=== PATIENT | male | born 1940 | race Caucasian/White ===

== ENCOUNTER 2016-08-05 07:07 | Inpatient (IN) | payer OTHER ==
[~2016-08-05] VITALS: Ht 177.8 cm; Wt 129.2 kg
[2016-08-05] VITALS (20 sets, daily range): BP systolic 99–154; BP diastolic 41–74
[~2016-08-05 07:07] MED LIST: ASPIRIN81 M1 PO; ATIVAN0.5 MG PO; DIOVAN160 MG PO; EFFEXOR37.5 MG PO; LISINOPRIL10 MG PO; LISINOPRIL20 MG PO; LOPRESSOR25 MG PO; LOPRESSOR50 MG PO; METOPROLOL TART25 MG PO; NIASPAN,SLO-N1000 MG PO; NIFEDIPINE10 MG PO; Norvasc PO; SIMVASTATIN10 MG PO; SIMVASTATIN40 MG PO; [UNRECOGNIZED DRUG - OTHER] PO; risperDAL PO
[2016-08-05 08:24] LABS: BASE EXCESS -6.4 mEq/L (-3 to +3); BICARBONATE 18.1 mEq/L (22-26); CARBOXY HGB 1.8 % (0-5); COMMENTS - BLOOD GASES A+C+; DEVICE NRB; FI02 100 %; METHEMOGLOBIN 1.1 % (0-1.5); PCO2 32 mm Hg (35-45); PO2 74 mm Hg (80-100); SITE RR; TOTAL RESP RATE 40 resp/min; pH 7.36 (7.35-7.45)
[2016-08-05 08:34] LABS: EOSINOPHIL (%) 0.1 % (0-5); HEMATOCRIT 36.7 % (38.0-50.0); IMMATURE GRANULOCYTE (%) 0.6 % (0.0-0.7); IMMATURE GRANULOCYTE COUNT 0.6 K/uL; LYMPHOCYTE COUNT 1.8 K/uL (1.0-2.8); MCH 31.4 PG (29.0-34.0); MCHC 33.8 G/DL (30.0-36.0); MCV 92.9 FL (86-99); MEAN PLAT.VOLUME 9.4 uM^3 (9.0-12.4); MONOCYTE (%) 9.8 % (3-12); MONOCYTE COUNT 1.1 K/uL (0-0.8); NEUTROPHIL (%) 73.1 % (45-76); NEUTROPHIL COUNT 7.8 K/uL (1.8-6.4); PLATELET COUNT 324 K/uL (156-360); RBC DIS.WIDTH-CV 13.6 % (11.8-14.6); RED BLOOD COUNT 3.95 M/uL (4.00-5.50); WHITE BLOOD COUNT 10.7 K/uL (4.1-10.2)
[2016-08-05 09:05] LABS: ANION GAP 18 MEQ/L (2-14); CHLORIDE 105 MEQ/L (99-109); POTASSIUM 3.7 MEQ/L (3.7-5.4); SAMPLE HEMOLYSIS CHECK 0; SAMPLE ICTERIC CHECK 0; SAMPLE LIPEMIA CHECK 0; SODIUM 142 MEQ/L (136-147); TOTAL BILIRUBIN 0.5 MG/DL (0.0-1.0)
[2016-08-05 09:11] LABS: ALKALINE PHOSPHATASE 53 IU/L (3-129); GFR ESTIMATE (CALCULATED) 11 mL/min/; GLUCOSE 159 mg/dL (70-99); UREA NITROGEN (BUN) 78 mg/dL (9-23)
[2016-08-05 10:39] LABS: ADD MIUA? YES; BILIRUBIN MODERATE; BLOOD SMALL; COLOR AMBER ((YELLOW)); GLUCOSE (STRIP) NEGATIVE; KETONES TRACE; LEUKOCYTES SMALL; NITRITE NEGATIVE; PROTEIN (STRIP) 30; SPECIFIC GRAVITY 1.028 (1.000-1.030); UROBILINOGEN 0.2 MG/DL (0.2-1.0)
[2016-08-05 10:57] LABS: ICTOTEST NEGATIVE
[2016-08-05 11:02] LABS: EPITHELIAL CELLS RARE
[2016-08-05 11:03] LABS: BACTERIA 1+; CASTS PRESENT /LPF; CRYSTALS NONE SEEN; MUCUS NONE SEEN; RED BLOOD CELLS 15-20 /HPF (0-5); UCUL ADDED? NO
[2016-08-05 11:45] LABS: EOSINOPHIL (%) 0 % (0-5); HEMATOCRIT 35.2 % (38.0-50.0); IMMATURE GRANULOCYTE (%) 0.5 % (0.0-0.7); IMMATURE GRANULOCYTE COUNT 0.5 K/uL; LYMPHOCYTE COUNT 1.4 K/uL (1.0-2.8); MCH 30.9 PG (29.0-34.0); MCV 93.6 FL (86-99); MEAN PLAT.VOLUME 9.2 uM^3 (9.0-12.4); MONOCYTE (%) 12.6 % (3-12); MONOCYTE COUNT 1.3 K/uL (0-0.8); NEUTROPHIL (%) 73.1 % (45-76); NEUTROPHIL COUNT 7.7 K/uL (1.8-6.4); PLATELET COUNT 301 K/uL (156-360); RBC DIS.WIDTH-CV 13.7 % (11.8-14.6); RBC DIS.WIDTH-SD 45.1 % (39-53); RED BLOOD COUNT 3.76 M/uL (4.00-5.50); WHITE BLOOD COUNT 10.5 K/uL (4.1-10.2)
[2016-08-05] MEDS ORDERED: ZOCOR20 MG PO (12:48)
[2016-08-05] MEDS ORDERED: LOPRESSOR100 M1 PO (12:49)
[2016-08-05] MEDS ORDERED: EFFEXOR XR75 MG PO (12:50)
[2016-08-05] MEDS ORDERED: PROPYLTHIOURACI50 MG PO (12:51)
[2016-08-05] MEDS ORDERED: SINEMET 25-1001 EACH PO (12:52)
[2016-08-05] MEDS ORDERED: DICLOFENAC SODI75 MG PO (12:52)
[2016-08-05] MEDS ORDERED: MIRAPEX0.5 MG PO (12:52)
[2016-08-05] MEDS ORDERED: NEURONTIN300 MG PO (12:53)
[2016-08-05] MEDS ORDERED: BENICAR HCT 201 EACH PO (12:53)
[2016-08-05] MEDS ORDERED: KLONOPIN0.5 M1 PO (12:53)
[2016-08-05] MEDS ORDERED: GEODON40 MG PO (12:54)
[2016-08-05] MEDS ORDERED: ESOMEPRAZOLE MA40 MG PO (12:54)
[2016-08-05] MEDS ORDERED: BUSPAR10 MG PO (12:54)
[2016-08-05] MEDS ORDERED: DICYCLOMINE HCL20 MG PO (12:55)
[2016-08-05] MEDS ORDERED: FLEXERIL10 MG PO (12:55)
[2016-08-05 16:42] LABS: MAGNESIUM 2.4 mg/dl (1.3-2.7)
[2016-08-05 17:08] LABS: METH RESISTANT S AUREUS PCR NEGATIVE (NEGATIVE)
[2016-08-05 17:13] LABS: PROBE CHECK PASS; SPECIMEN PROCESSING CONTROL PASS
[2016-08-05 18:06] LABS: POINT-OF-CARE METER ID UU14162636
[2016-08-05 18:12] LABS: ANION GAP 14 MEQ/L (2-14); CHLORIDE 111 MEQ/L (99-109); GFR ESTIMATE (CALCULATED) 12 mL/min/; GLUCOSE 131 mg/dL (70-99); SAMPLE HEMOLYSIS CHECK 0; SAMPLE ICTERIC CHECK 0; SAMPLE LIPEMIA CHECK 0; SODIUM 144 MEQ/L (136-147); UREA NITROGEN (BUN) 84 mg/dL (9-23)
[2016-08-05 19:38] LABS: UR CREATININE CONCENTRATION 442.8 MG/DL
[2016-08-06] VITALS (23 sets, daily range): BP systolic 106–179; BP diastolic 42–143
[2016-08-06 00:55] LABS: POINT-OF-CARE METER ID UU13113731
[2016-08-06 06:05] LABS: ANION GAP 17 MEQ/L (2-14); CHLORIDE 113 MEQ/L (99-109); GLUCOSE 109 mg/dL (70-99); POTASSIUM 3.6 MEQ/L (3.7-5.4); SAMPLE HEMOLYSIS CHECK 0; SAMPLE ICTERIC CHECK 0; SAMPLE LIPEMIA CHECK 0; SODIUM 147 MEQ/L (136-147); UREA NITROGEN (BUN) 74 mg/dL (9-23)
[2016-08-06 06:07] LABS: GFR ESTIMATE (CALCULATED) 21 mL/min/; MAGNESIUM 1.9 mg/dl (1.3-2.7)
[2016-08-06 06:23] LABS: EOSINOPHIL (%) 0 % (0-5); HEMATOCRIT 33.9 % (38.0-50.0); IMMATURE GRANULOCYTE (%) 0.6 % (0.0-0.7); LYMPHOCYTE COUNT 1.3 K/uL (1.0-2.8); MCH 30.7 PG (29.0-34.0); MCHC 32.4 G/DL (30.0-36.0); MCV 94.7 FL (86-99); MEAN PLAT.VOLUME 9.6 uM^3 (9.0-12.4); MONOCYTE (%) 18.1 % (3-12); MONOCYTE COUNT 0.9 K/uL (0-0.8); NEUTROPHIL (%) 53.9 % (45-76); NEUTROPHIL COUNT 2.6 K/uL (1.8-6.4); PLATELET COUNT 241 K/uL (156-360); RED BLOOD COUNT 3.58 M/uL (4.00-5.50)
[2016-08-06 06:29] LABS: WHITE BLOOD COUNT 4.9 K/uL (4.1-10.2)
[2016-08-06 07:39] LABS: HEMATOLOGY COMMENT 1 SMEAR COMPATIBLE; USER ID SDF
[2016-08-06 12:56] LABS: POINT-OF-CARE METER ID UU13113731
[2016-08-06 20:23] LABS: BASE EXCESS -3.9 mEq/L (-3 to +3); BICARBONATE 21.6 mEq/L (22-26); CARBOXY HGB 1.7 % (0-5); PO2 73 mm Hg (80-100); pH 7.34 (7.35-7.45)
[2016-08-06 20:24] LABS: COMMENTS - BLOOD GASES A+C+; DEVICE 840; FI02 50 %; MECHANICAL RATE 12 resp/min; MODE A/C; PCO2 40 mm Hg (35-45); PEEP 5 CM/H20; SITE RR; TIDAL VOLUME 350 ML
[2016-08-07] VITALS (24 sets, daily range): BP systolic 85–172; BP diastolic 35–79
[2016-08-07 00:59] LABS: POINT-OF-CARE METER ID UU13113731
[2016-08-07 05:29] LABS: POINT-OF-CARE METER ID UU13113803
[2016-08-07 05:53] LABS: HEMATOCRIT 27.5 % (38.0-50.0); MCH 30.8 PG (29.0-34.0); MCHC 32.7 G/DL (30.0-36.0); MCV 94.2 FL (86-99); MEAN PLAT.VOLUME 9.1 uM^3 (9.0-12.4); PLATELET COUNT 206 K/uL (156-360); RBC DIS.WIDTH-CV 14.4 % (11.8-14.6); RBC DIS.WIDTH-SD 49.5 % (39-53); RED BLOOD COUNT 2.92 M/uL (4.00-5.50); WHITE BLOOD COUNT 5.6 K/uL (4.1-10.2)
[2016-08-07 06:24] LABS: ANION GAP 13 MEQ/L (2-14); CHLORIDE 110 MEQ/L (99-109); GLUCOSE 111 mg/dL (70-99); MAGNESIUM 1.9 mg/dl (1.3-2.7); POTASSIUM 3.4 MEQ/L (3.7-5.4); SAMPLE HEMOLYSIS CHECK 0; SAMPLE ICTERIC CHECK 0; SAMPLE LIPEMIA CHECK 0; SODIUM 144 MEQ/L (136-147); UREA NITROGEN (BUN) 46 mg/dL (9-23)
[2016-08-07 06:28] LABS: GFR ESTIMATE (CALCULATED) 35 mL/min/
[2016-08-07 06:51] LABS: EOSINOPHIL (%) 1.3 % (0-5); EOSINOPHIL COUNT 0.1 K/uL (0-0.3); HEMATOLOGY COMMENT 1 SMEAR COMPATIBLE; IMMATURE GRANULOCYTE COUNT 0.1 K/uL; MONOCYTE (%) 18.8 % (3-12); MONOCYTE COUNT 1.1 K/uL (0-0.8); NEUTROPHIL (%) 59.2 % (45-76); NEUTROPHIL COUNT 3.3 K/uL (1.8-6.4); USER ID SDF
[2016-08-07 11:09] LABS: HEMATOCRIT 31.1 % (38.0-50.0); MCV 95.4 FL (86-99)
[2016-08-07 11:37] LABS: POINT-OF-CARE METER ID UU13113803
[2016-08-07 17:53] LABS: POINT-OF-CARE METER ID UU13113803
[2016-08-07 18:30] LABS: MCV 94.3 FL (86-99)
[2016-08-08] VITALS (26 sets, daily range): BP systolic 71–190; BP diastolic 33–105
[2016-08-08 00:49] LABS: POINT-OF-CARE METER ID UU13113803
[2016-08-08 00:52] LABS: HEMATOCRIT 28.9 % (38.0-50.0); MCV 93.5 FL (86-99)
[2016-08-08 06:16] LABS: ANION GAP 10 MEQ/L (2-14); CHLORIDE 108 MEQ/L (99-109); GFR ESTIMATE (CALCULATED) 53 mL/min/; GLUCOSE 119 mg/dL (70-99); MAGNESIUM 2.1 mg/dl (1.3-2.7); POTASSIUM 3.5 MEQ/L (3.7-5.4); SAMPLE HEMOLYSIS CHECK 1; SAMPLE ICTERIC CHECK 0; SAMPLE LIPEMIA CHECK 0; SODIUM 140 MEQ/L (136-147); UREA NITROGEN (BUN) 39 mg/dL (9-23)
[2016-08-08 06:27] LABS: EOSINOPHIL (%) 2.2 % (0-5); EOSINOPHIL COUNT 0.2 K/uL (0-0.3); HEMATOCRIT 25.6 % (38.0-50.0); IMMATURE GRANULOCYTE (%) 2.3 % (0.0-0.7); IMMATURE GRANULOCYTE COUNT 0.2 K/uL; LYMPHOCYTE COUNT 1.1 K/uL (1.0-2.8); MCHC 33.2 G/DL (30.0-36.0); MCV 93.4 FL (86-99); MEAN PLAT.VOLUME 9.6 uM^3 (9.0-12.4); MONOCYTE (%) 6.8 % (3-12); MONOCYTE COUNT 0.5 K/uL (0-0.8); NEUTROPHIL (%) 74.3 % (45-76); NEUTROPHIL COUNT 5.8 K/uL (1.8-6.4); PLATELET COUNT 211 K/uL (156-360); RBC DIS.WIDTH-CV 14.5 % (11.8-14.6); RBC DIS.WIDTH-SD 49.5 % (39-53); RED BLOOD COUNT 2.74 M/uL (4.00-5.50)
[2016-08-08 06:29] LABS: WHITE BLOOD COUNT 7.8 K/uL (4.1-10.2)
[2016-08-08 07:40] LABS: HEMATOLOGY COMMENT 1 SMEAR COMPATIBLE; USER ID CCL
[2016-08-09] VITALS (33 sets, daily range): BP systolic 79–229; BP diastolic 35–116
[2016-08-09 00:34] LABS: CHLORIDE 111 mEq/L (99-109); SODIUM 143 mEq/L (136-147)
[2016-08-09 00:36] LABS: GLUCOSE 101 mg/dL (70-99)
[2016-08-09 00:37] LABS: ANION GAP 16 MEQ/L (2-14); POTASSIUM 4.8 mEq/L (3.7-5.4)
[2016-08-09 00:40] LABS: GFR ESTIMATE (CALCULATED) 37 mL/min/; UREA NITROGEN (BUN) 42 mg/dL (9-23)
[2016-08-09 01:40] LABS: BASE EXCESS -2.6 mEq/L (-3 to +3); BICARBONATE 20.4 mEq/L (22-26); METHEMOGLOBIN 1.6 % (0-1.5)
[2016-08-09 01:41] LABS: COMMENTS - BLOOD GASES C+A+; DEVICE VENTILATOR; FI02 80 %; INSPIRATION TIME 0.75 seconds; MECHANICAL RATE 12 resp/min; MODE AC; PCO2 28 mm Hg (35-45); PEEP 10 CM/H20; PO2 125 mm Hg (80-100); SITE LR; TIDAL VOLUME 450 ML; TOTAL RESP RATE 54 resp/min; pH 7.47 (7.35-7.45)
[2016-08-09 04:38] LABS: CHLORIDE 108 mEq/L (99-109); SODIUM 145 mEq/L (136-147)
[2016-08-09 04:39] LABS: MAGNESIUM 1.9 mg/dL (1.3-2.7)
[2016-08-09 04:40] LABS: GLUCOSE 77 mg/dL (70-99)
[2016-08-09 04:42] LABS: ANION GAP 20 MEQ/L (2-14)
[2016-08-09 04:44] LABS: GFR ESTIMATE (CALCULATED) 37 mL/min/
[2016-08-09 04:45] LABS: UREA NITROGEN (BUN) 43 mg/dL (9-23)
[2016-08-09 05:09] LABS: TROP-I INTERPRETATION NEGATIVE; TROPONIN-I 0.16 ng/mL (0.0-0.30)
[2016-08-09 05:28] LABS: BASOPHIL COUNT 0.1 K/uL (0-0.1); EOSINOPHIL (%) 0.9 % (0-5); EOSINOPHIL COUNT 0.2 K/uL (0-0.3); HEMATOCRIT 26.7 % (38.0-50.0); IMMATURE GRANULOCYTE (%) 2.9 % (0.0-0.7); IMMATURE GRANULOCYTE COUNT 5.6 K/uL; LYMPHOCYTE COUNT 2.8 K/uL (1.0-2.8); MCH 31.1 PG (29.0-34.0); MCV 94.3 FL (86-99); MEAN PLAT.VOLUME 9.5 uM^3 (9.0-12.4); MONOCYTE (%) 7.3 % (3-12); MONOCYTE COUNT 1.4 K/uL (0-0.8); NEUTROPHIL (%) 74.4 % (45-76); NEUTROPHIL COUNT 14.6 K/uL (1.8-6.4); RBC DIS.WIDTH-CV 14.6 % (11.8-14.6); RBC DIS.WIDTH-SD 47.8 % (39-53); RED BLOOD COUNT 2.83 M/uL (4.00-5.50)
[2016-08-09 06:03] LABS: PLATELET COUNT 320 K/uL (156-360); WHITE BLOOD COUNT 19.6 K/uL (4.1-10.2)
[2016-08-09 06:25] LABS: POINT-OF-CARE METER ID UU13113731
[2016-08-09 10:52] LABS: HEMATOLOGY COMMENT 1 SMEAR COMPATIBLE; PLAT.SUFFICIENCY ADEQUATE; USER ID WCD
[2016-08-09 17:49] LABS: POINT-OF-CARE METER ID UU13113748
[2016-08-10] VITALS (24 sets, daily range): BP systolic 95–184; BP diastolic 39–74
[2016-08-10 00:39] LABS: POINT-OF-CARE METER ID UU13113731; POINT-OF-CARE USER ID LABHNS84
[2016-08-10 05:43] LABS: POINT-OF-CARE METER ID UU14174217
[2016-08-10 06:23] LABS: HEMATOCRIT 24.4 % (38.0-50.0); MCH 30.7 PG (29.0-34.0); MCHC 32.4 G/DL (30.0-36.0); MCV 94.9 FL (86-99); PLATELET COUNT 234 K/uL (156-360); RBC DIS.WIDTH-CV 15.3 % (11.8-14.6); RBC DIS.WIDTH-SD 52.7 % (39-53); RED BLOOD COUNT 2.57 M/uL (4.00-5.50)
[2016-08-10 06:24] LABS: WHITE BLOOD COUNT 11.5 K/uL (4.1-10.2)
[2016-08-10 06:26] LABS: ANION GAP 19 MEQ/L (2-14); CHLORIDE 107 MEQ/L (99-109); GFR ESTIMATE (CALCULATED) 42 mL/min/; GLUCOSE 84 mg/dL (70-99); MAGNESIUM 2.1 mg/dl (1.3-2.7); POTASSIUM 3.2 MEQ/L (3.7-5.4); SAMPLE HEMOLYSIS CHECK 0; SAMPLE ICTERIC CHECK 0; SAMPLE LIPEMIA CHECK 1; SODIUM 143 MEQ/L (136-147); UREA NITROGEN (BUN) 42 mg/dL (9-23)
[2016-08-10 07:04] LABS: EOSINOPHIL (%) 2.2 % (0-5); EOSINOPHIL COUNT 0.3 K/uL (0-0.3); HEMATOLOGY COMMENT 1 SMEAR COMPATIBLE; IMMATURE GRANULOCYTE (%) 2.4 % (0.0-0.7); IMMATURE GRANULOCYTE COUNT 0.3 K/uL; LYMPHOCYTE COUNT 1.1 K/uL (1.0-2.8); MONOCYTE (%) 4.5 % (3-12); MONOCYTE COUNT 0.5 K/uL (0-0.8); NEUTROPHIL (%) 81.1 % (45-76); NEUTROPHIL COUNT 9.3 K/uL (1.8-6.4); USER ID CL
[2016-08-10 11:51] LABS: POINT-OF-CARE METER ID UU14174217
[2016-08-10 17:08] LABS: POINT-OF-CARE METER ID UU14174217
[2016-08-11] VITALS (25 sets, daily range): BP systolic 105–201; BP diastolic 50–92
[2016-08-11 00:30] LABS: POINT-OF-CARE METER ID UU14174217
[2016-08-11 05:45] LABS: HEMATOCRIT 23.4 % (38.0-50.0); MCH 31.1 PG (29.0-34.0); MCHC 33.3 G/DL (30.0-36.0); MCV 93.2 FL (86-99); MEAN PLAT.VOLUME 9.6 uM^3 (9.0-12.4); PLATELET COUNT 281 K/uL (156-360); RBC DIS.WIDTH-CV 15.3 % (11.8-14.6); RBC DIS.WIDTH-SD 52.2 % (39-53); RED BLOOD COUNT 2.51 M/uL (4.00-5.50); WHITE BLOOD COUNT 9.8 K/uL (4.1-10.2)
[2016-08-11 06:08] LABS: POINT-OF-CARE METER ID UU14174217
[2016-08-11 06:20] LABS: ANION GAP 14 MEQ/L (2-14); CHLORIDE 105 MEQ/L (99-109); GFR ESTIMATE (CALCULATED) 57 mL/min/; GLUCOSE 104 mg/dL (70-99); MAGNESIUM 1.8 mg/dl (1.3-2.7); POTASSIUM 3.4 MEQ/L (3.7-5.4); SAMPLE HEMOLYSIS CHECK 0; SAMPLE ICTERIC CHECK 0; SAMPLE LIPEMIA CHECK 1; SODIUM 142 MEQ/L (136-147); UREA NITROGEN (BUN) 38 mg/dL (9-23)
[2016-08-11 09:11] LABS: ABS NEUTROPHIL COUNT 8.99; ANISOCYTOSIS 1+; EOSINOPHIL (%) 1.9 % (0-5); EOSINOPHIL COUNT 0.2 K/uL (0-0.3); IMMATURE GRANULOCYTE (%) 6.2 % (0.0-0.7); IMMATURE GRANULOCYTE COUNT 0.6 K/uL; LYMPHOCYTE COUNT 0.8 K/uL (1.0-2.8); MONOCYTE (%) 6.7 % (3-12); MONOCYTE COUNT 0.7 K/uL (0-0.8); NEUTROPHIL (%) 76.4 % (45-76); NEUTROPHIL COUNT 7.5 K/uL (1.8-6.4); PLAT.SUFFICIENCY ADEQUATE; USER ID MCB
[2016-08-11 10:43] LABS: BASE EXCESS -2.7 mEq/L (-3 to +3); BICARBONATE 20.6 mEq/L (22-26); CARBOXY HGB 1.1 % (0-5); METHEMOGLOBIN 1.6 % (0-1.5); PCO2 29 mm Hg (35-45); pH 7.46 (7.35-7.45)
[2016-08-11 10:44] LABS: COMMENTS - BLOOD GASES C+A-N/A; DEVICE 840 VENTILATOR; FI02 85 %; INSPIRATION TIME 0.75 seconds; MECHANICAL RATE 14 resp/min; MODE AC/VC+; PEEP 12 CM/H20; PO2 86 mm Hg (80-100); SITE LR; TIDAL VOLUME 510 ML; TOTAL RESP RATE 24 resp/min
[2016-08-11 12:01] LABS: ANISOCYTOSIS 1+; PLAT.SUFFICIENCY ADEQUATE
[2016-08-11 12:08] LABS: POINT-OF-CARE METER ID UU14174217
[2016-08-11 17:12] LABS: POINT-OF-CARE METER ID UU13113731
[2016-08-11 19:55] LABS: ALKALINE PHOSPHATASE 55 IU/L (3-129); ANION GAP 16 MEQ/L (2-14); CHLORIDE 104 MEQ/L (99-109); GFR ESTIMATE (CALCULATED) > 59 mL/min/; GLUCOSE 114 mg/dL (70-99); MAGNESIUM 1.8 mg/dl (1.3-2.7); POTASSIUM 3.4 MEQ/L (3.7-5.4); SAMPLE HEMOLYSIS CHECK 0; SAMPLE ICTERIC CHECK 0; SAMPLE LIPEMIA CHECK 1; SODIUM 143 MEQ/L (136-147); TOTAL BILIRUBIN 0.8 MG/DL (0.0-1.0); UREA NITROGEN (BUN) 29 mg/dL (9-23)
[2016-08-12] VITALS (25 sets, daily range): BP systolic 96–166; BP diastolic 40–74
[2016-08-12 00:07] LABS: POINT-OF-CARE METER ID UU13113731
[2016-08-12 06:00] LABS: POINT-OF-CARE METER ID UU13113748
[2016-08-12 06:24] LABS: HEMATOCRIT 24.2 % (38.0-50.0); MCH 30.7 PG (29.0-34.0); MCHC 33.1 G/DL (30.0-36.0); MCV 92.7 FL (86-99); MEAN PLAT.VOLUME 9.9 uM^3 (9.0-12.4); NRBC (%) 0.9 /100 WBC (0-0); PLATELET COUNT 292 K/uL (156-360); RBC DIS.WIDTH-CV 15.3 % (11.8-14.6); RBC DIS.WIDTH-SD 51.3 % (39-53); RED BLOOD COUNT 2.61 M/uL (4.00-5.50); WHITE BLOOD COUNT 8.5 K/uL (4.1-10.2)
[2016-08-12 06:54] LABS: ANION GAP 9 MEQ/L (2-14); CHLORIDE 104 MEQ/L (99-109); GFR ESTIMATE (CALCULATED) > 59 mL/min/; GLUCOSE 152 mg/dL (70-99); MAGNESIUM 1.8 mg/dl (1.3-2.7); POTASSIUM 3.3 MEQ/L (3.7-5.4); SAMPLE HEMOLYSIS CHECK 0; SAMPLE ICTERIC CHECK 0; SAMPLE LIPEMIA CHECK 0; SODIUM 141 MEQ/L (136-147); UREA NITROGEN (BUN) 29 mg/dL (9-23)
[2016-08-12 08:13] LABS: ABS NEUTROPHIL COUNT 8.02; EOSINOPHIL (%) 3.6 % (0-5); EOSINOPHIL ABS CT 0.09; EOSINOPHIL COUNT 0.3 K/uL (0-0.3); IMMATURE GRANULOCYTE (%) 6.9 % (0.0-0.7); IMMATURE GRANULOCYTE COUNT 0.6 K/uL; LYMPHOCYTE COUNT 0.9 K/uL (1.0-2.8); MONOCYTE (%) 7.6 % (3-12); MONOCYTE COUNT 0.7 K/uL (0-0.8); NEUTROPHIL (%) 71.4 % (45-76); NEUTROPHIL COUNT 6.1 K/uL (1.8-6.4)
[2016-08-12 13:43] LABS: POINT-OF-CARE METER ID UU13113748
[2016-08-12 18:27] LABS: POINT-OF-CARE METER ID UU13113748
[2016-08-12 23:38] LABS: POINT-OF-CARE METER ID UU14162636
[2016-08-13] VITALS (16 sets, daily range): BP systolic 55–136; BP diastolic 29–60
[2016-08-13 05:43] LABS: HEMATOCRIT 23.8 % (38.0-50.0); MCH 30.7 PG (29.0-34.0); MCHC 32.8 G/DL (30.0-36.0); MCV 93.7 FL (86-99); MEAN PLAT.VOLUME 9.9 uM^3 (9.0-12.4); NRBC (%) 0.6 /100 WBC (0-0); PLATELET COUNT 300 K/uL (156-360); RBC DIS.WIDTH-CV 15.5 % (11.8-14.6); RBC DIS.WIDTH-SD 52.6 % (39-53); RED BLOOD COUNT 2.54 M/uL (4.00-5.50); WHITE BLOOD COUNT 8.1 K/uL (4.1-10.2)
[2016-08-13 05:46] LABS: POINT-OF-CARE METER ID UU13113748
[2016-08-13 06:34] LABS: ALKALINE PHOSPHATASE 47 IU/L (3-129); ANION GAP 9 MEQ/L (2-14); CHLORIDE 106 MEQ/L (99-109); DIRECT BILIRUBIN 0.3 mg/dL (0.0-0.3); GAMMA-GT 83 IU/L (4-73); GFR ESTIMATE (CALCULATED) 57 mL/min/; GLUCOSE 141 mg/dL (70-99); POTASSIUM 3.7 MEQ/L (3.7-5.4); PREALBUMIN 8.6 mg/dL (10-40); SAMPLE HEMOLYSIS CHECK 0; SAMPLE ICTERIC CHECK 0; SAMPLE LIPEMIA CHECK 0; SODIUM 143 MEQ/L (136-147); TOTAL BILIRUBIN 0.7 MG/DL (0.0-1.0); TRIGLYCERIDES 367 MG/DL (Normal: <150); UREA NITROGEN (BUN) 30 mg/dL (9-23)
[2016-08-13 06:35] LABS: MAGNESIUM 2.4 mg/dl (1.3-2.7)
[2016-08-13 07:22] LABS: ABS NEUTROPHIL COUNT 6.21; ANISOCYTOSIS 1+; EOSINOPHIL ABS CT 0.24; MACROCYTES 1+; PLAT.SUFFICIENCY ADEQUATE; POLYCHROMASIA 1+
[2016-08-13 07:47] LABS: DELETE MACHINE DIFF? YES
== END 2016-08-13 20:17 | DRG 853 ==
LOC: EME → EDBD 07:07 → EDOF 12:31 → 4WEST 12:31
PROVIDERS: Emergency Medicine; Internal Medicine Nephrology; Surgery; Surgery Trauma Surgery
PROC: 04HK33Z Insertion of Infusion Device into Right Femoral Artery, Percutaneous Approach (ICD-10-PCS; 2016-08-05)
PROC: 0DQ80ZZ Repair Small Intestine, Open Approach (ICD-10-PCS; principal; 2016-08-06)
PROC: 0DNS4ZZ (ICD-10-PCS; principal; 2016-08-06)
PROC: 5A1955Z Respiratory Ventilation, Greater than 96 Consecutive Hours (ICD-10-PCS; principal; 2016-08-06)
PROC: 0DN80ZZ Release Small Intestine, Open Approach (ICD-10-PCS; principal; 2016-08-06)
PROC: 0BH17EZ Insertion of Endotracheal Airway into Trachea, Via Natural or Artificial Opening (ICD-10-PCS; 2016-08-08)
PROC: 02H633Z Insertion of Infusion Device into Right Atrium, Percutaneous Approach (ICD-10-PCS; 2016-08-10)
DX: A41.9 Sepsis, unspecified organism (principal); R65.21 Severe sepsis with septic shock; N17.9 Acute kidney failure, unspecified; N39.0 Urinary tract infection, site not specified; K56.5 Intestinal adhesions [bands] with obstruction (postinfection); K91.71 Accidental puncture and laceration of a digestive system organ or structure during a digestive system procedure; Y65.8 Other specified misadventures during surgical and medical care; K56.7 Ileus, unspecified; E87.2 Acidosis; J96.01 Acute respiratory failure with hypoxia; J98.11 Atelectasis; I48.91 Unspecified atrial fibrillation; Z53.31 Laparoscopic surgical procedure converted to open procedure; J90 Pleural effusion, not elsewhere classified; Z66 Do not resuscitate; Z51.5 Encounter for palliative care; I10 Essential (primary) hypertension; G20 Parkinson's disease; E87.6 Hypokalemia; F32.9 Major depressive disorder, single episode, unspecified; E83.39 Other disorders of phosphorus metabolism; S00.81XA Abrasion of other part of head, initial encounter; S00.31XA Abrasion of nose, initial encounter; W06.XXXA Fall from bed, initial encounter; Y92.003 Bedroom of unspecified non-institutional (private) residence as the place of occurrence of the external cause; K31.84 Gastroparesis; E86.1 Hypovolemia; E05.90 Thyrotoxicosis, unspecified without thyrotoxic crisis or storm; G93.40 Encephalopathy, unspecified; D64.9 Anemia, unspecified; Z87.19 Personal history of other diseases of the digestive system; Z87.891 Personal history of nicotine dependence
CPT/HCPCS: 36600; 70450; 71010; 74000; 74176; 80048; 80048 91; 80053; 80076; 81003; 82436; 82570; 82803; 82948; 82977; 83605; 83735; 84100; 84133; 84134; 84156; 84300; 84443; 84478; 84484; 84540; 84630 90; 85007; 85014; 85018; 85025; 85025 91; 85027; 87040; 87070; 87086; 87106; 87205; 87641; 93005; 94002; 94003; 94640; 94640 76; 94760; 94799; 99202; 99281; 99285; C9113; J0330; J0692; J1170; J1630; J1644; J1815; J1940; J2060; J2250; J2270; J2704; J2765; J3010; J3370; J3475; J3486; J7030; J7050; J7120; P9045; S0030